=== PATIENT | male | born 1950 | race Caucasian/White ===

== ENCOUNTER 2024-09-01 06:45 | Day surgery (SDC) | payer MEDICARE, OTHER ==
[2024-09-01] MEDS: Lactated Ringers 1,000 ML IV SCH (07:10)
[2024-09-01] MEDS ORDERED: propofoL 500 MG/50 ML 50 ML ONE (07:34)
[2024-09-01] MEDS ORDERED: Lidocaine 2% 5 ML SDV ONE (07:34)
[2024-09-01 08:48] VITALS: PULSE 61
[2024-09-01 09:00] VITALS: BP 122/62
== END 2024-09-01 09:06 | disposition home or self-care (01) ==
LOC: MW.SDS 06:45
PROVIDERS: ATTEND Surgery
DX: K21.00 Gastro-esophageal reflux disease with esophagitis, without bleeding (principal); K57.30 Diverticulosis of large intestine without perforation or abscess without bleeding; K64.8 Other hemorrhoids; K44.9 Diaphragmatic hernia without obstruction or gangrene; I12.9 Hypertensive chronic kidney disease with stage 1 through stage 4 chronic kidney disease, or unspecified chronic kidney disease; E11.22 Type 2 diabetes mellitus with diabetic chronic kidney disease; N18.30 Chronic kidney disease, stage 3 unspecified; D64.9 Anemia, unspecified; E78.00 Pure hypercholesterolemia, unspecified; Z79.899 Other long term (current) drug therapy
CPT/HCPCS: 43239; 45378; 88305; J2704; J7120; 00813; 99100; J3490